=== PATIENT | female | born 1990 | race African-American/Black ===

== ENCOUNTER 2022-10-17 09:39 | Inpatient (IN) | payer OTHER ==
[2022-10-17 10:42] VITALS: BMI 29.2
[2022-10-17] MEDS ORDERED: diazePAM 5 MG TABLET PO PRN (11:22)
[2022-10-17] MEDS ORDERED: NALOXONE HCL (KLOXXADO) 8 MG SPRAY NS PRN (11:22)
[2022-10-17] MEDS ORDERED: MAG HYDROX/AL HYDROX/SIMETH 30 ML UNIT-DOSE CUP PO PRN (11:22)
[2022-10-17] MEDS ORDERED: IBUPROFEN 600 MG TABLET (FP) PO PRN (11:22)
[2022-10-17] MEDS ORDERED: BENZONATATE 200 MG CAPSULE PO PRN (11:22)
[2022-10-17] MEDS ORDERED: DICYCLOMINE HCL 10 MG CAPSULE PO PRN (11:22)
[2022-10-17] MEDS ORDERED: ONDANSETRON *ODT* 4 MG TABLET SL PRN (11:22)
[2022-10-17] MEDS ORDERED: POLYETHYLENE GLYCOL (HEALTHYLAX) 3350 17 GM PACKET PO PRN (11:22)
[2022-10-17] MEDS ORDERED: guaiFENesin 600 MG TABLET.ER (FP) PO PRN (11:22)
[2022-10-17] MEDS ORDERED: hydrOXYzine PAMOATE 25 MG CAPSULE (FP) PO PRN (11:22)
[2022-10-17] MEDS ORDERED: BUPRENORPHINE HCL 150 MCG, BUPRENORPHINE HCL 75 MCG BC PRN (11:22)
[2022-10-17] MEDS ORDERED: cloNIDine HCL 0.1 MG TABLET PO ONE (11:22)
[2022-10-17] MEDS ORDERED: BISMUTH SUBSALICYLATE 524 MG/30 ML PO PRN (11:22)
[2022-10-17] MEDS ORDERED: ACETAMINOPHEN 325 MG TABLET (FP) PO PRN (11:22)
[2022-10-17] MEDS ORDERED: BUPRENORPHINE HCL 150 MCG, BUPRENORPHINE HCL 75 MCG BC ONE (11:22)
[2022-10-17] MEDS ORDERED: METHOCARBAMOL 500 MG TABLET PO PRN (11:22)
[2022-10-17] MEDS ORDERED: LOPERAMIDE HCL 2 MG CAPSULE PO PRN (11:22)
[2022-10-17] MEDS ORDERED: MAGNESIUM HYDROX 2400MG/30ML ORAL SUSPENSION 30 ML CUP PO PRN (11:22)
[2022-10-17] MEDS ORDERED: NALOXONE HCL 0.4 MG/ML VIAL IM PRN (11:22)
[2022-10-17] MEDS ORDERED: BENZOCAINE/MENTHOL (CHLORASEPTIC ) LOZENGE MM PRN (11:22)
[2022-10-17] MEDS ORDERED: IBUPROFEN 400 MG TABLET (FP) PO PRN (11:22)
[2022-10-17] MEDS ORDERED: INSULIN (LEVEMIR) 100 UNITS/ML UNITS SQ SCH (11:30)
[2022-10-17] MEDS ORDERED: INSULIN (NOVOLOG) ASPART 100 UNITS/ML 10ML VIAL SQ SCH (11:30)
[2022-10-17] MEDS ORDERED: BUPRENORPHINE HCL 75 MCG FILM BC ONE (11:52)
[2022-10-17] MEDS ORDERED: BUPRENORPHINE HCL 150 MCG FILM BC ONE (11:52)
[2022-10-17] MEDS ORDERED: ONDANSETRON *ODT* 4 MG TABLET ONE (11:53)
[2022-10-17] MEDS ORDERED: IBUPROFEN 600 MG TABLET (FP) PO ONE (11:53)
[2022-10-17] MEDS ORDERED: cloNIDine HCL 0.1 MG TABLET ONE (11:53)
[2022-10-17] MEDS ORDERED: ALBUTEROL SO4 HFA INHALER IH PRN (13:12)
[2022-10-17 13:20] VITALS: RESP 20
[2022-10-17] MEDS ORDERED: METOCLOPRAMIDE HCL 10 MG TABLET (FP) PO SCH (14:00)
[2022-10-17] MEDS ORDERED: QUEtiapine FUMARATE 50 MG TABLET PO STA (15:19)
[2022-10-17] MEDS ORDERED: cloNIDine HCL 0.1 MG TABLET PO PRN (15:23)
[2022-10-17] MEDS ORDERED: metFORMIN HCL 500 MG TABLET (FP) PO SCH ×2 (16:30→17:00)
[2022-10-17] MEDS ORDERED: FAMOTIDINE 20 MG TABLET PO SCH (17:00)
[2022-10-17 17:04] VITALS: BP 152/113; PULSE 132; TEMP 97.8
[2022-10-17] MEDS ORDERED: MELATONIN 5 MG TABLETS PO SCH (22:00)
[2022-10-17] MEDS ORDERED: QUEtiapine FUMARATE 200 MG TABLET PO SCH (22:00)
[2022-10-17] MEDS ORDERED: THIAMINE HCL 100 MG TABLET (FP) PO SCH (22:00)
[2022-10-17] MEDS ORDERED: busPIRone HCL 5 MG TABLET PO SCH (22:00)
[2022-10-18] MEDS ORDERED: BUPRENORPHINE HCL 150 MCG, BUPRENORPHINE HCL 75 MCG BC PRN
[2022-10-18] MEDS ORDERED: BUPRENORPHINE HCL 150 MCG, BUPRENORPHINE HCL 75 MCG BC SCH (06:00)
[2022-10-18] MEDS ORDERED: QUEtiapine FUMARATE 100 MG TABLET (FP) PO SCH (10:00)
[2022-10-18] MEDS ORDERED: PRENATAL VITAMINS W/ FOLIC ACID TABLET (FP) PO SCH (10:00)
[2022-10-19] MEDS ORDERED: BUPRENORPHINE HCL 450 MCG FILM BC PRN
[2022-10-19] MEDS ORDERED: BUPRENORPHINE HCL 450 MCG FILM BC SCH (06:00)
[2022-10-20] MEDS ORDERED: BUPRENORPHINE/NALOXONE 4 MG/1 MG FILM PACKET SL SCH (06:00)
[2022-10-21] MEDS ORDERED: BUPRENORPHINE/NALOXONE 8 MG/2 MG FILM PACKET SL ONE (06:00)
== END 2022-10-17 16:41 | disposition left against medical advice (07) | DRG 770 ==
LOC: YASAS 09:39 → Y6N 12:30
PROVIDERS: ADMIT Allergy & Immunology; ATTEND Surgery
PROC: HZ2ZZZZ Detoxification Services for Substance Abuse Treatment (ICD-10-PCS; principal; 2022-10-17)
DX: F11.23 Opioid dependence with withdrawal (principal); F19.282 Other psychoactive substance dependence with psychoactive substance-induced sleep disorder; E11.42 Type 2 diabetes mellitus with diabetic polyneuropathy; E11.43 Type 2 diabetes mellitus with diabetic autonomic (poly)neuropathy; K31.84 Gastroparesis; Z79.4 Long term (current) use of insulin; F31.9 Bipolar disorder, unspecified; Z62.810 Personal history of physical and sexual abuse in childhood
CPT/HCPCS: 81025; 82962; 87811; 93005; 93010; C9803-CS; Q0162; U0003; U0005